=== PATIENT | female | born 1950 | race Caucasian/White ===

== ENCOUNTER 2024-09-02 01:29 | Emergency (ER) | payer SELFPAY ==
[~2024-09-02] VITALS: Ht 180.3 cm; Wt 77.0 kg
[2024-09-02 01:32] VITALS: BP 146/98; PULSE 99; RESP 16; TEMP 96.8; O2SAT 99
[2024-09-02 01:50] LABS: BASOPHILS # (AUTO) 0.1 X10'3 (0-0.2); BASOPHILS % (AUTO) 0.5 % (0-1); EOSINOPHILS # (AUTO) 0.3 X10'3 (0-0.9); EOSINOPHILS % (AUTO) 2.2 % (0-6); HEMATOCRIT 47.3 % (35.0-45.0); LYMPHOCYTES # (AUTO) 3.4 X10'3 (1.1-4.8); LYMPHOCYTES % (AUTO) 21.6 % (21-51); MEAN CORPUSCULAR HGB CONC 33.8 g/dL (33.0-36.5); MEAN CORPUSCULAR VOLUME 85.6 FL (78-98); MEAN PLATELET VOLUME 7.6 FL (7.4-10.4); MONOCYTES # (AUTO) 1.1 X10'3 (0-0.9); MONOCYTES % (AUTO) 7.3 % (2-12); NEUTROPHILS # (AUTO) 10.6 X10'3 (1.8-7.7); NEUTROPHILS % (AUTO) 68.4 % (42-75); PLATELET COUNT 323 X10'3 (140-440); RED BLOOD COUNT 5.52 X10'6 (4.20-5.60); WHITE BLOOD COUNT 15.6 X10'3 (4.5-11.0)
[2024-09-02 02:01] LABS: ALANINE AMINOTRANSFERASE 24 U/L (12-78); ALBUMIN 3.7 G/DL (3.4-5.0); ALKALINE PHOSPHATASE 75 IU/L (46-116); ANION GAP 8 (8-16); ASPARTATE AMINO TRANSFERASE 17 U/L (10-37); BILIRUBIN,TOTAL 0.5 MG/DL (0.1-1.0); BLOOD UREA NITROGEN 18 MG/DL (7-18); BUN/CREATININE RATIO 23.4 (10.0-20.0); CHLORIDE 102 MMOL/L (99-107); CREATININE 0.77 MG/DL (0.40-0.90); GLUCOSE 116 MG/DL (70-104); POTASSIUM 3.9 MMOL/L (3.5-5.1); SODIUM 139 MMOL/L (135-145); TOTAL CARBON DIOXIDE 29.5 MMOL/L (24-32); TOTAL PROTEIN 7.4 G/DL (6.4-8.2); eCRCL 69 ML/MIN; eGFR 73 ML/MIN
[2024-09-02 02:08] LABS: PRO BRAIN NATRIURETIC PEPTIDE 103 PG/ML (0-450)
--- NOTE | 2024-09-02 02:30 | Physician Documentation ---
History of Present Illness ~ Chief Complaint: Chest Pain Stated Complaint: CHEST PAIN Time Seen by MD: 02:30 HPI Patient presents to the emergency room for evaluation of chest pain. Patient does not have a doctor in his unaware of any past medical history. She does not smoke. Positive family history of both her parents with heart disease. Patient states she was sitting talking with her significant other when she began having neck pain radiating into her shoulders and chest this has since subsided. She states she has felt nothing like this before although she does endorse history of heartburn Medication Reconciliation Allergies: Coded Allergies: No Known Allergies (Unverified , 09/02/24) Review of Systems ROS All review of systems negative except as per HPI Physical Exam Vital Signs: Temperature: 96.8, Heart Rate: 99, Respiratory Rate: 16, BP: 146/98, Pulse Oximetry: 99, Weight: 77.000 Physical Exam General: Patient is awake, alert, oriented x4 in no acute distress Head: Normocephalic and atraumatic. Eyes: Conjunctival normal. EOMI. PERRL. ENT: Mucous membranes moist. Neck: Supple, trachea is midline. Chest: Clear to auscultation bilaterally without rales, rhonchi, or wheezes. There is no accessory muscle use or retractions. Cardiac: RRR without murmurs, gallops, or rubs. Extremities: Normal strength. Normal range of motion. No deformities or edema. No calf tenderness to palpation Progress Results/Orders Results/Orders Orders - TUSHAR HARRIS MD Chest,Single View (09/02/24 01:57) Monitor (09/02/24 01:34) Saline Lock (09/02/24 01:34) Oxygen (09/02/24 01:34) Hs Troponin I W Calculations (09/02/24 03:34) Hs Troponin I W Calculations (09/02/24 04:34) Page Hospitalist (09/02/24 02:50) Fill Out Med Reconciliation (09/02/24 02:50) Completed Orders - TUSHAR HARRIS MD Chest,Single View (09/02/24 01:57) Cbc/Diff (09/02/24 01:34) PBNP (09/02/24 01:34) Electrocardiogram (09/02/24 01:34) CMP (09/02/24 01:34) Hs Troponin I W Calculations (09/02/24 01:34) Vital Signs 09/02/24 01:32 Temp 96.8 Pulse 99 Resp 16 B/P (MAP) 146/98 Pulse Ox 99 Laboratory Tests Test 09/02/24 01:41 White Blood Count 15.6 H Red Blood Count 5.52 Hemoglobin 16.0 Hematocrit 47.3 H Mean Corpuscular Volume 85.6 Mean Corpuscular Hemoglobin 29.0 Mean Corpuscular Hemoglobin Concent 33.8 Red Cell Distribution Width 15.0 H Platelet Count 323 Mean Platelet Volume 7.6 Neutrophils (%) (Auto) 68.4 Lymphocytes (%) (Auto) 21.6 Monocytes (%) (Auto) 7.3 Eosinophils (%) (Auto) 2.2 Basophils (%) (Auto) 0.5 Neutrophils # (Auto) 10.6 H Lymphocytes # (Auto) 3.4 Monocytes # (Auto) 1.1 H Eosinophils # (Auto) 0.3 Basophils # (Auto) 0.1 CBC Comment Sodium Level 139 Potassium Level 3.9 Chloride Level 102 Carbon Dioxide Level 29.5 Anion Gap 8 Blood Urea Nitrogen 18 Creatinine 0.77 Estimated GFR/1.73 m2 73 BUN/Creatinine Ratio 23.4 H Glucose Level 116 H Calcium Level 9.0 Total Bilirubin 0.5 Aspartate Amino Transf (AST/SGOT) 17 Alanine Aminotransferase (ALT/SGPT) 24 Alkaline Phosphatase 75 Troponin I High Sensitivity 8 Pro-B-Type Natriuretic Peptide 103 Total Protein 7.4 Albumin 3.7 Globulin 3.7 Albumin/Globulin Ratio 1.0 L Chemistry Comments EKG/XRAY/CT/US/VASC/MRI EKG : Additional Comment EKG interpreted by myself shows time of 0136, rate 97, sinus rhythm, normal axis, no ST changes Chest X-Ray : Additional Comments One view chest x-ray interpreted by myself shows no effusions, no infiltrates and normal cardiac silhouette Medical Decision Making Findings Patient presents to the emergency room for evaluation of chest pain. Differentials include but are not limited to ACS, reflux, pulmonary embolism, acute aortic pathology therefore emergent labs and chest x-ray indicated. Chest x-ray is reassuring. Labs are reassuring. Patient does not have a doctor in his unaware of any past medical history although her pressure is elevated here and she is obese with positive family history of heart disease. She had least has a heart score of four in his considered high risk therefore we will admit for further investigation. Patient has already had four baby aspirin today. I do not feel she requires investigation into pulmonary embolism or acute aortic pathology as symptoms have resolved. Departure Admitted to Inpatient Unit: yes, to hospitalist Impression: Primary Impression: Chest pain Condition: Guarded Referrals: NO PRIMARY CARE PROVIDER (PCP) Signature Scribe Signature: No scribe Attestation: The note accurately reflects work and decisions made by me.Tushar Harris MD 09/02/24 02:50 TUSHAR HARRIS MD September 02, 2024 02:30
--- NOTE | 2024-09-02 05:24 | RADIOLOGY REPORT ---
EXAM: XR Chest, 1 View CLINICAL INDICATION: CP TECHNIQUE: Frontal view of the chest. COMPARISON: None FINDINGS: LUNGS AND PLEURAL SPACES: Unremarkable. No consolidation. No pneumothorax. HEART: Cardiomegaly without overt failure. MEDIASTINUM: Unremarkable. Normal mediastinal contour. BONES/JOINTS: Unremarkable. No acute fracture. OTHER FINDINGS: . . . IMPRESSION: Cardiomegaly without overt failure.
--- NOTE | 2024-09-02 06:51 | ELECTROCARDIOGRAPH REPORT ---
[facility] Test Date: 2024-09-02 Test Time: 01:36:50 Pat Name: JUANITA VALLE Department: EMERGENCY ROOM Room: Gender: F Chemistry Intern: : 1950 Requested By: KODAK TRUJILLO Order Number: [id number] Reading MD: Measurements Intervals [place] Rate: 97 P: 60 [place]: 162 QRS: 47 QRSD: 93 T: 64 QT: 341 QTc: 433 Interpretive Statements Sinus rhythm Ventricular premature complex Minimal ST depression, lateral leads Baseline wander in lead(s) V3 Please click the below link to view image of tracing.
== END 2024-09-02 03:34 | disposition left against medical advice (07) ==
LOC: ER 01:30
DX: R07.89 Other chest pain (principal); I16.1 Hypertensive emergency
CPT/HCPCS: 36415; 71045; 80053; 83880; 84484; 85025; 93005; 99285